=== PATIENT | male | born 1995 | race Caucasian/White ===

== ENCOUNTER 2017-05-08 09:42 | Emergency (ER) | payer MEDICAID ==
[~2017-05-08] VITALS: Ht 185.4 cm; Wt 68.0 kg
[2017-05-08 09:47] VITALS: BP_SYST 126
[2017-05-08 09:53] VITALS: BP_SYST 126
== END 2017-05-08 09:53 | disposition home or self-care (01) ==
LOC: SED 09:42
DX: J02.9 Acute pharyngitis, unspecified (principal); R50.9 Fever, unspecified; M79.1 Myalgia
CPT/HCPCS: 99283

== ENCOUNTER 2021-03-27 08:34 | Emergency (ER) | payer MEDICAID ==
[~2021-03-27] VITALS: Ht 185.4 cm; Wt 90.3 kg
[2021-03-27 08:43] VITALS: BP_SYST 134
[2021-03-27] MEDS ORDERED: LORazepam 1 MG TABLET PO ONE (09:00)
[2021-03-27 09:33] VITALS: BP_SYST 134
== END 2021-03-27 09:34 | disposition home or self-care (01) ==
LOC: SED 08:34
DX: R06.02 Shortness of breath (principal); F41.9 Anxiety disorder, unspecified; F31.9 Bipolar disorder, unspecified
CPT/HCPCS: 71045; 93005; 99283